=== PATIENT | female | born 1990 | race Caucasian/White ===

== ENCOUNTER 2021-08-30 22:10 | Observation (INO) ==
[2021-08-30 21:54] LABS: Bilirubin,Urine Negative (Negative); Blood,Urine Negative (Negative); Clarity,Urine Ex.Turbid (Clear); Color,Urine Yellow (Yellow); Glucose,Urine (UA) Normal (Normal); Ketones,Urine Negative (Negative); Leukocyte Esterase,Urine Small (Negative); Mucus,Urine Few per lpf (None-Few); Nitrite,Urine Negative (Negative); Protein,Urine 50 mg/dL (Neg-Trace); Specific Gravity,Urine 1.022 (1.010-1.025); Squamous Epithelial Cell,Urine Many per hpf (None-Few); WBC,Urine 15-30 per hpf (0-3)
== END 2021-08-30 22:25 | disposition home or self-care (01) ==
LOC: 1NENULAB
PROVIDERS: ADMIT Advanced Practice Midwife; ATTEND Advanced Practice Midwife

== ENCOUNTER 2021-09-22 08:13 | Inpatient (IN) ==
[2021-09-22] MEDS ORDERED: Oxytocin 30 UNIT/503 ML BAG IVC ONE (08:24)
[2021-09-22] MEDS ORDERED: *HR* FentaNYL (PF) 100 MCG/2 ML VIAL IVP ONE (08:33)
[2021-09-22] MEDS ORDERED: *HR* FentaNYL (PF) 250 MCG/5 ML VIAL ONE (08:44)
[2021-09-22] MEDS ORDERED: *HR* Midazolam HCl 2 MG/2 ML VIAL ONE (08:44)
[2021-09-22] MEDS ORDERED: *HR* Propofol 200 MG/20 ML VIAL IVP ONE (08:44)
[2021-09-22] MEDS ORDERED: Naloxone 0.4 MG/ML INJ IVP PRN (08:48)
[2021-09-22] MEDS ORDERED: Famotidine 20 MG/2 ML VIAL IVP PRN (08:48)
[2021-09-22] MEDS ORDERED: Ondansetron 4 MG/2 ML VIAL IVP PRN (08:48)
[2021-09-22] MEDS ORDERED: Metoclopramide 10 MG/2 ML VIAL IVP PRN (08:48)
[2021-09-22] MEDS ORDERED: Clindamycin 900 MG/50 ML 900 MG/50 ML IV.SOLN IVPB ONE (08:50)
[2021-09-22] MEDS ORDERED: Metoclopramide 10 MG/2 ML VIAL IVP ONE (08:50)
[2021-09-22] MEDS ORDERED: Famotidine 20 MG/2 ML VIAL IVP ONE (08:50)
[2021-09-22] MEDS ORDERED: Ondansetron 4 MG/2 ML VIAL ONE (08:53)
[2021-09-22] MEDS ORDERED: Lidocaine -MPF 2% 2 ML VIAL ONE (08:53)
[2021-09-22] MEDS ORDERED: Gentamicin 100 MG in 0.9 % Sodium Chloride 100 ML IVPB ONE (08:56)
[2021-09-22] MEDS ORDERED: Ringers Solution, Lactated 2,000 ML ONE (08:56)
[2021-09-22] MEDS ORDERED: *HR* Succinylcholine 200 MG/10 ML VIAL IVP ONE (08:59)
[2021-09-22] MEDS ORDERED: Ringers Solution, Lactated 1,000 ML IVC SCH (09:00)
[2021-09-22] MEDS ORDERED: *HR* Oxytocin 10 UNIT/ML VIAL ONE (09:01)
[2021-09-22 09:06] LABS: Basophils % 0.1 %; Hematocrit 31.8 % (35.3-44.9); Hemoglobin 10.6 g/dL (11.5-15.4); Immature Granulocytes % 0.5 % (0-4); Lymphocytes # 1.2 K/mcL (0.6-4.6); Lymphocytes % 7.9 %; Mean Corpuscular HGB Conc 33.3 g/dL (31.6-35.5); Mean Corpuscular Hemoglobin 26.5 pg (28.0-33.3); Mean Corpuscular Volume 79.5 fL (83.0-100.0); Mean Platelet Volume 10.3 fL (9.4-12.4); Monocytes # 0.5 K/mcL (0.0-1.3); Monocytes % 2.9 %; Neutrophils # 13.8 K/mcL (1.6-8.9); Platelet Count 236 K/mcL (140-400); Red Cell Distribution Width 13.7 % (11.5-14.5); Segmented Neutrophils % 88.6 %; White Blood Count 15.6 K/mcL (4.3-11.1)
[2021-09-22] MEDS ORDERED: Bupivacaine-MPF 0.25% 10 ML VIAL ONE (10:08)
[2021-09-22] MEDS ORDERED: Ketorolac 30 MG/ML VIAL ONE (10:20)
[2021-09-22] MEDS ORDERED: *HR* OxyCODONE Immed Rel 5 MG TABLET PO PRN (13:03)
[2021-09-22] MEDS ORDERED: Lanolin 7 G OINT...G. TP PRN (13:03)
[2021-09-22] MEDS ORDERED: Ondansetron ODT 4 MG TAB.RAPDIS SL PRN (13:03)
[2021-09-22] MEDS ORDERED: Benzocaine/Menthol 56 GM AEROSOL SPRAY TP PRN (13:03)
[2021-09-22] MEDS ORDERED: Oxytocin 30 UNIT/503 ML BAG IVC SCH (13:03)
[2021-09-22] MEDS: Acetaminophen 325 MG TABLET PO SCH ×2 (13:20→20:00)
[2021-09-22] MEDS: Ibuprofen 600 MG TABLET PO SCH ×2 (13:20→20:00)
[2021-09-23 05:00] LABS: Basophils % 0.1 %; Eosinophils % 0.4 %; Hematocrit 21.9 % (35.3-44.9); Immature Granulocytes % 0.5 % (0-4); Lymphocytes # 2.9 K/mcL (0.6-4.6); Lymphocytes % 28.2 %; Mean Corpuscular HGB Conc 32.9 g/dL (31.6-35.5); Mean Corpuscular Hemoglobin 26.7 pg (28.0-33.3); Mean Corpuscular Volume 81.1 fL (83.0-100.0); Mean Platelet Volume 10.7 fL (9.4-12.4); Monocytes # 0.7 K/mcL (0.0-1.3); Monocytes % 6.7 %; Neutrophils # 6.6 K/mcL (1.6-8.9); Platelet Count 197 K/mcL (140-400); Red Cell Distribution Width 14.1 % (11.5-14.5); Segmented Neutrophils % 64.1 %; White Blood Count 10.3 K/mcL (4.3-11.1)
[2021-09-23 05:01] LABS: Hemoglobin 7.2 g/dL (11.5-15.4)
[2021-09-23 07:12] VITALS: BP 100/54; PULSE 87; TEMP 97.5; O2SAT 100
[2021-09-23] MEDS ORDERED: Prenatal Vit/FA 1 EACH TABLET PO SCH (09:00)
[2021-09-23] MEDS: Acetaminophen 325 MG TABLET PO SCH (09:34)
[2021-09-23] MEDS: Ibuprofen 600 MG TABLET PO SCH (09:34)
== END 2021-09-23 12:59 | disposition home health service (06) | DRG 769 ==
LOC: 1NENULAB 08:13 → 1NENUOBS 13:00
PROVIDERS: ADMIT Obstetrics & Gynecology; ATTEND Obstetrics & Gynecology